=== PATIENT | female | born 1995 | race African-American/Black ===

== ENCOUNTER 2016-10-01 20:42 | Emergency (ER) | payer SELFPAY ==
[~2016-10-01] VITALS: Ht 165.1 cm; Wt 83.0 kg
[~2016-10-01 20:42] MED LIST: MOTRIN
[2016-10-01 21:41] VITALS: BP 125/87
[2016-10-01] MEDS ORDERED: METHYLPREDNISOLONE SOD SUCC 125 MG/2 ML VIAL IV STA (21:42)
[2016-10-01] MEDS ORDERED: ALBUTEROL (0.083%) 2.5MG/3ML NEB HHN STA (21:42)
[2016-10-01] MEDS ORDERED: IPRATROPIUM BROMIDE (0.02%) 0.5MG/2.5ML NEB HHN STA (21:42)
[2016-10-02] MEDS ORDERED: ALBUTEROL (0.083%) 2.5MG/3ML NEB HHN STA (00:25)
== END 2016-10-02 00:52 | disposition home or self-care (01) ==
LOC: ER 21:21
DX: J45.901 Unspecified asthma with (acute) exacerbation (principal); F17.210 Nicotine dependence, cigarettes, uncomplicated; F12.10 Cannabis abuse, uncomplicated; Z88.8 Allergy status to other drugs, medicaments and biological substances
CPT/HCPCS: 71010; 94644; 96374; 99284; 99285; J2930; J7611

== ENCOUNTER 2019-05-07 02:37 | Emergency (ER) | payer OTHER ==
[~2019-05-07] VITALS: Ht 165.1 cm; Wt 95.0 kg
[2019-05-07 02:43] VITALS: BP 116/84
[2019-05-07] MEDS ORDERED: DEXAMETHASONE 4MG TABLET PO SCH (03:00)
[2019-05-07] MEDS ORDERED: IPRATROPIUM/ALBUTEROL 0.5-3(2.5)MG/3ML NEB HHN SCH (03:00)
== END 2019-05-07 04:56 | disposition left against medical advice (07) ==
LOC: ER 02:37
DX: J45.909 Unspecified asthma, uncomplicated (principal)
CPT/HCPCS: 71045; 99283; J7620; J8540